=== PATIENT | male | born 1960 | race African-American/Black ===

== ENCOUNTER 2020-10-23 10:28 | Emergency (ER) | payer OTHER ==
[~2020-10-23] VITALS: Ht 175.3 cm; Wt 99.8 kg
[~2020-10-23 10:28] MED LIST: LEVAQUIN 750 M750 MG PO; OTHER MISCELL
[2020-10-23] MEDS ORDERED: METFORMIN HCL500 M3 PO (10:53)
[2020-10-23 11:16] VITALS: BP 139/87
[2020-10-23 11:56] LABS: BE(vivo) -2.6 mmol/L (-2 to +3); HCO3 22.2 mmol/L (22.0-26.0); PO2 86.5 mmHg (80.0-100.0); pH 7.374 (7.360-7.450); sO2 96.4 % (92.0-98.0)
== END 2020-10-23 12:24 | disposition home or self-care (01) ==
LOC: ER 10:28
PROVIDERS: Nurse Practitioner
DX: T17.990A Other foreign object in respiratory tract, part unspecified in causing asphyxiation, initial encounter (principal); E11.9 Type 2 diabetes mellitus without complications; F17.290 Nicotine dependence, other tobacco product, uncomplicated; Z79.84 Long term (current) use of oral hypoglycemic drugs; Z91.013 Allergy to seafood; W93.12XA Inhalation of liquid air, initial encounter; Y93.89 Activity, other specified; Y92.89 Other specified places as the place of occurrence of the external cause; Y99.8 Other external cause status